=== PATIENT | male | born 1960 | race Caucasian/White ===

== ENCOUNTER 2019-01-25 14:43 | Emergency (ER) | payer SELFPAY ==
[2019-01-25 14:43] VITALS: BP 130/86
--- NOTE | 2019-01-25 14:52 | ER Report ---
History and Physical Time Seen By MD: 14:36 Hx. of Stated Complaint: PENITENTIARY CLEARANCE - ETOH HPI/ROS CHIEF COMPLAINT: Alf clearance HISTORY OF PRESENT ILLNESS: 58-year-old male patient presents to emergency room with complaint of eating be cleared for shelter. Patient states that he was at the bar today. He had 2 shots of vodka. He states that he fell while he was there. Police were called and he was arrested for disorderly conduct. Patient denies any headache. He states he has neck pain, which is normal for him. He denies any nausea, vomiting or diarrhea. Patient states he is not taking any medication for this. Allergies: Coded Allergies: No Known Drug Allergies (Unverified , 01/25/19) Home Meds No Active Prescriptions or Reported Meds Past Medical/Surgical History Patient states he has a past medical history of neck problems. Unable To Obtain Past Medical: Unable to Obtain/Update Reviewed Nurses Notes: Yes Constitutional Vital Sign - Last 24 Hours 01/25/19 14:43 Temp 98.7 Pulse 75 Resp 20 B/P (MAP) 130/86 Pulse Ox 94 O2 Delivery Room Air Physical Exam General appearance: Alert no distress. Respiratory: Chest is non tender, lungs are clear to auscultation. Cardiac: Regular rate and rhythm. Skin: Patient does have abrasion to the right side of scalp. Musculoskeletal: Patient has no obvious deformity of the cervical spine, tender to the left side up behind the ear. DIFFERENTIAL DIAGNOSIS: After history and physical exam differential diagnosis was considered for alcohol intoxication, abrasion, concussion, intracranial hemorrhage. Medical Decision Making ED Course/Re-evaluation ED Course Patient is admitted and examined, history and physical obtained. Differential diagnoses were considered. On examination lungs are clear, heart is regular. Patient does have some tenderness to the neck just behind the left ear. There is no obvious deformity. I discussed doing a CT scan of the head and cervical spine. Patient refused. We will go ahead and discharge him home at this time. He is to follow-up with his primary care provider in the next week. He is to follow-up with [facility] with any concerns. I would like him to keep him close to the nurses station so he may monitor for signs of increased cranial pressure. Decision to Disposition Date: Jan 25, 2019 Decision to Disposition Time: 14:48 Depart Departure Latest Vital Signs Vital Signs Date Time Temp Pulse Resp B/P (MAP) Pulse Ox O2 Delivery O2 Flow Rate FiO2 01/25/19 14:43 98.7 75 20 130/86 94 Room Air Impression: Primary Impression: Medical clearance for incarceration Additional Impression: Fall Condition: Improved Disposition: HOME OR SELF-CARE New Scripts No Active Prescriptions or Reported Meds Patient Instructions: GENERAL ER DISCHARGE INSTRUCTIONS Additional Instructions: Increase fluid intake. Get plenty of rest. Return to the ER if condition worsens. I would like to scan your head, but you refused. Have them keep an eye on you at the [facility] and if you have uncontrollable vomiting, dizziness, confusion then have them bring you back for a CT scan. Problem Qualifiers Additional Impression: Fall Encounter type: initial encounter Qualified Codes: W19.XXXA - Unspecified fall, initial encounter TESFAYE CHAPA Jan 25, 2019 14:52
== END 2019-01-25 14:56 | disposition home or self-care (01) ==
LOC: ER 14:48
DX: F10.120 Alcohol abuse with intoxication, uncomplicated (principal)
CPT/HCPCS: 99281